=== PATIENT | female | born 1990 | race Hispanic/Latino ===

== ENCOUNTER 2023-01-08 00:40 | Emergency (ER) | payer BC ==
[~2023-01-08] VITALS: Ht 147.3 cm; Wt 28.6 kg
[2023-01-08 02:50] LABS: HCG,QUALITATIVE URINE NEGATIVE (NEGATIVE)
[2023-01-08 02:52] LABS: BASOPHILS % (AUTO) 0.5 % (0.0-5.0); EOSINOPHILS % (AUTO) 1.6 % (0.0-8.0); HEMATOCRIT 41.2 % (36-48); MEAN CORPUSCULAR HEMOGLOBIN 29.1 pg (27.0-33.0); MEAN CORPUSCULAR HGB CONC 33.3 g/dL (32.0-36.0); MEAN CORPUSCULAR VOLUME 87.7 fL (79-99); MONOCYTES % (AUTO) 5.5 % (3.0-13.0); NEUTROPHILS % (AUTO) 69.1 % (40.0-77.0); PLATELET COUNT (AUTO) 331 K/uL (130-400); RED CELL DISTRIBUTION WIDTH 13.1 % (11.0-15.5); WHITE BLOOD COUNT (AUTO) 9.5 K/uL (4.8-10.8)
[2023-01-08 03:00] LABS: APPEARANCE,URINE CLEAR (CLEAR); BILIRUBIN,URINE NEGATIVE (NEGATIVE); COLOR,URINE LIGHT-YELLOW (YELLOW); GLUCOSE, URINE (UA) NEGATIVE (NEGATIVE); KETONES,URINE 100 mg/dL (NEGATIVE); LEUKOCYTE ESTERASE ,URINE NEGATIVE Leu/uL (NEGATIVE); NITRATE,URINE NEGATIVE (NEGATIVE); PH,URINE 6.5 (5.0-8.0); PROTEIN,URINE NEGATIVE (NEGATIVE); UROBILINOGEN,URINE 0.2 mg/dL (0.2-1.0)
[2023-01-08 03:03] LABS: BACTERIA,URINE RARE /HPF (None Seen); MUCUS,URINE RARE LPF (None Seen); SQUAMOUS EPITHELIAL CELL,UR RARE /HPF (0-2)
[2023-01-08 03:14] LABS: CREATININE 0.7 mg/dL (0.5-1.5); POTASSIUM 3.5 mmol/L (3.5-5.1)
[2023-01-08 03:19] LABS: ALBUMIN 3.9 g/dL (3.5-5.0); TOTAL PROTEIN, SERUM 8.4 g/dL (6.0-8.3)
[2023-01-08] MEDS ORDERED: LACTATED RINGERS 1000ML 1,000 ML IV ONE (03:30)
[2023-01-08] MEDS ORDERED: METOCLOPRAMIDE 10 MG/2 ML VIAL IVP ONE (03:30)
[2023-01-08] MEDS ORDERED: KETOROLAC 30MG VIAL (30MG/ML) IM ONE (03:30)
[2023-01-08] MEDS ORDERED: FAMOTIDINE 20MG VIAL IV ONE (03:30)
[2023-01-08 05:18] VITALS: BP 119/74
[2023-01-08] MEDS ORDERED: NAPR-1192 PO (05:22)
[2023-01-08] MEDS ORDERED: METO10TA41 PO (05:22)
== END 2023-01-08 05:30 | disposition home or self-care (01) ==
LOC: EDH 00:40
DX: N20.0 Calculus of kidney (principal); Z88.0 Allergy status to penicillin
CPT/HCPCS: 99285; 74176; 96374; 76705; 96375; 80053; 83690; 85025; 81001; 81025; 36415; 96372; J7120; J3490; J1885; J2765

== ENCOUNTER 2024-08-23 12:25 | Emergency (ER) | payer BC ==
[~2024-08-23] VITALS: Ht 147.3 cm; Wt 70.8 kg
[~2024-08-23 12:25] MED LIST: METO10TA41 PO; NAPR-1192 PO
--- NOTE | 2024-08-23 14:20 | HMCIMG ---
US ARTERIAL UNILA LOW EXT DUPL REASON: Decreased cap refilll to right foot s/p trauma to right leg r/o occlusion COMPARISON: None TECHNIQUE: Right leg arterial Doppler evaluation was performed with spectral analysis and color flow imaging. FINDINGS: There are normal triphasic waveforms common femoral artery through the popliteal artery. Posterior tibial, anterior tibial undersurface pedis are triphasic as well. Flow velocities are preserved throughout. IMPRESSION: 1. Normal left lower extremity arterial Doppler vascular evaluation.
--- NOTE | 2024-08-23 14:42 | ERN ---
General Chief Complaint: Lower Extremity Pain/Injury Stated Complaint: CALF PAIN X 3 DAYS Time Seen by MD: 12:41 Time Seen by Midlevel: 12:41 History of Present Illness Initial Comments 34-year-old female presents to the ED for right calf pain onset two days ago. Patient reports she heard a 'pop' and states that her calf pain has been worsening. Patient is also concerned because she feels her right foot is cold. Allergies: Coded Allergies: Penicillins (Unverified Allergy, Unknown, 01/08/23) Home Meds Active Scripts Naproxen (Naproxen) 375 Mg Tablet, 375 MG PO BID for 10 Days, #20 TAB 0 Refills Prov:TRACE MAY Sr., MD 01/08/23 Metoclopramide HCl (Reglan 10 mg Tab) 10 Mg Tablet, 10 MG PO QID PRN for nausea, #30 TAB 2 Refills Prov:TRACE MAY Sr., MD 01/08/23 Past Medical History Past Medical History: No Pertinent History Past Surgical History: None Female( History) LMP: Jul 24, 2024 : 0 ROS Dictation CONSTITUTIONAL: Negative except for HPI HEAD/FACE: Negative except for HPI EENT: Negative except for HPI RESPIRATORY: Negative except for HPI GASTROINTESTINAL/ABDOMINAL: Negative except for HPI GENITOURINARY: Negative except for HPI MUSCULOSKELETAL: Negative except for HPI INTEGUMENTARY: Negative except for HPI NEUROLOGICAL/PSYCH: Negative except for HPI HEMATOLOGIC/LYMPHATIC: Negative except for HPI All Systems Negative, Except as noted above. 13 point review of systems assessed and all negative except for above. Physical Exam Physical Exam Dictation Vital Signs reviewed General Appearance: Alert, oriented x 3, no acute distress, well developed, nourished. Head and Face: non-traumatic. Eyes: PERRL, pink conjunctivas, eyelid no trauma, anterior chamber with arcus senilis. Ears: Pinnas intact and no signs of trauma or erythema ear canals clear and no discharge TM no erythema Nose: No discharge, no bleeding. Oropharynx: Mouth normal, tongue pink, pharynx clear,no erythema, tonsils no exudates, no abscesses noted, mucous membrane moist Neck: Supple, non-tender, no thyromegaly, no masses, no JVD, no bruits Breast:Deferred Chest:No tenderness, no crepitus, no paradoxical movement, no retractions Lungs:Clear, well-ventilated, symmetric, no rales, no wheezing, no rhonchi, no stridor, good breath sounds bilaterally Heart: Regular rate, regular rhythm, no murmur, no gallops Vascular: no peripheral edema, Abdomen: Soft, positive bowel sounds, nondistended, no guarding, nontender, no rebound, no masses no hepatomegaly, no splenomegaly, no Alonzo's sign, no hernias. Rectal: Deferred Genital: Deferred Neurological: Normal speech, motor function intact, sensory function intact Musculoskeletal: Neck nontender, full range of motion, back nontender, full range of motion, Extremities: Mild calf swelling to the right, toes of the right foot are cool to touch Skin: Color pink, dry, no turgor, no rash, no lacerations, no abrasions, no contusions. Lymphatic: Deferred MDM MDM: Differential diagnosis: Calf strain, arterial occlusion There are no social concerns with this patient. Prescription drug management Prescriptions will include: None Medical management and examination interpretation discussions were had by me with other qualified healthcare professionals as indicated for the patient's care. ED Course Orders Procedure Category Date Status Time Us Arterial Unila Low US 08/23/24 Resulted Ext Dupl 13:26 Vital Signs Date Time Temp Pulse Resp B/P (MAP) Pulse Ox O2 Delivery O2 Flow Rate FiO2 08/23/24 14:50 97.9 77 18 122/67 98 Room Air* 0 21 08/23/24 14:02 97.2 76 20 120/81 97 Room Air 0 [place] [id number] [id number] IMAGING REPORT Signed PATIENT: URSULA TERRY MR#: [id number] : 1990 SEX: F AGE: 34 LOCATION: [facility] ORDER STATUS: REG ER REPORT#: [id number] SERVICE [id number] REASON: Decreased cap refilll to right foot s/p trauma to right leg r/o occlusion ORDERING PHYSICIAN: MARIKA TERRY PROCEDURE: ART U LE - US ARTERIAL UNILA LOW EXT DUPL US ARTERIAL UNILA LOW EXT DUPL REASON: Decreased cap refilll to right foot s/p trauma to right leg r/o occlusion COMPARISON: None TECHNIQUE: Right leg arterial Doppler evaluation was performed with spectral analysis and color flow imaging. FINDINGS: There are normal triphasic waveforms common femoral artery through the popliteal artery. Posterior tibial, anterior tibial undersurface pedis are triphasic as well. Flow velocities are preserved throughout. IMPRESSION: 1. Normal left lower extremity arterial Doppler vascular evaluation. DICTATED BY: YAMEL PACKER MD DATE: 08/23/24 1416 ELECTRONICALLY SIGNED BY: YAMEL PACKER MD DATE: 08/23/24 1420 DX & DISP Disposition: Discharge Departure Impression: Primary Impression: Strain of right calf muscle Condition: Stable Additional Instructions: Your arterial ultrasound does not show any arterial occlusion. Your symptoms are most likely related to a strain of the right calf. Please follow up with primary care doctor for repeat evaluation. Return to the ER for any new or worsening symptoms Referrals: SELF,REFERRAL (PCP) Time of Disposition: 14:36 I have reviewed the case, and I agree with, Diagnosis and Plan I performed the substantive portion of the visit. I have reviewed and personally made and approve the management plan that is documented in the note by myself or the RONY. I acknowledge for responsibility for the patient's management plan. MARIKA TERRY Aug 23, 2024 14:42 UMAIR ELISE MD Aug 23, 2024 18:58
[2024-08-23 14:50] VITALS: BP 122/67; PULSE 77; RESP 18; TEMP 97.9; O2SAT 98
== END 2024-08-23 15:06 | disposition home or self-care (01) ==
LOC: EDH 12:25
DX: S86.111A Strain of other muscle(s) and tendon(s) of posterior muscle group at lower leg level, right leg, initial encounter (principal); Z79.899 Other long term (current) drug therapy; Z88.0 Allergy status to penicillin; X58.XXXA Exposure to other specified factors, initial encounter; Y93.89 Activity, other specified; Y92.89 Other specified places as the place of occurrence of the external cause; Y99.8 Other external cause status
CPT/HCPCS: 93926; 99284